=== PATIENT | male | born 1935 | race Asian ===

== ENCOUNTER 2017-07-04 15:58 | Emergency (ER) | payer BC ==
[~2017-07-04] VITALS: Ht 167.6 cm; Wt 68.0 kg
[~2017-07-04 15:58] MED LIST: ASA81 PO; ATEN-41 PO; CLOP75TA2 PO; GLIP-195 PO; LIP20 PO; LISI-600 PO
[2017-07-04 16:08] VITALS: BP_SYST 143
[2017-07-04] MEDS ORDERED: KETOROLAC TROMETHAMINE 30 MG VIAL IM ONE (17:30)
[2017-07-04] MEDS: KETOROLAC TROMETHAMINE 60 MG/2 ML VIAL IM ONE (18:01)
[2017-07-04 18:36] VITALS: BP_SYST 138
== END 2017-07-04 18:36 | disposition home or self-care (01) ==
LOC: SED 15:58
DX: S39.012A Strain of muscle, fascia and tendon of lower back, initial encounter (principal); I10 Essential (primary) hypertension; E11.9 Type 2 diabetes mellitus without complications; E78.5 Hyperlipidemia, unspecified; Z90.89 Acquired absence of other organs; Z85.46 Personal history of malignant neoplasm of prostate; Z79.899 Other long term (current) drug therapy; X58.XXXA Exposure to other specified factors, initial encounter; Y93.89 Activity, other specified; Y92.89 Other specified places as the place of occurrence of the external cause; Y99.8 Other external cause status
CPT/HCPCS: 72100; 73502; 96372; 99284; J1885

== ENCOUNTER 2017-12-12 12:02 | Emergency (ER) | payer BC ==
[~2017-12-12] VITALS: Ht 167.6 cm; Wt 68.0 kg
[2017-12-12 12:02] VITALS: BP_SYST 167
[~2017-12-12 12:02] MED LIST changes: -GLIP-195 PO; +GLIP-212 PO
[2017-12-12] MEDS ORDERED: cloNIDine HCL 0.1 MG TABLET PO ONE (12:30)
[2017-12-12 12:59] LABS: ANION GAP 8 (5-15); CALCIUM 9.8 mg/dL (8.4-11.0); CHLORIDE 105 mmol/L (98-107); CREATININE 1.08 mg/dL (0.55-1.30); GLUCOSE 259 mg/dL (70-99); POTASSIUM 3.9 mmol/L (3.5-5.1); SODIUM SERUM 141 mmol/L (136-145); UREA NITROGEN, BLOOD 19 mg/dL (8-21)
[2017-12-12 13:04] LABS: ALANINE AMINOTRANSFERASE 34 U/L (12-78); ASPARTATE AMINOTRANSFERASE 20 U/L (10-37); TOTAL BILIRUBIN 0.6 mg/dL (0.0-1.0)
[2017-12-12 14:42] VITALS: BP_SYST 146
== END 2017-12-12 14:42 | disposition home or self-care (01) ==
LOC: SED 12:02
DX: I16.0 Hypertensive urgency (principal); E11.9 Type 2 diabetes mellitus without complications; I10 Essential (primary) hypertension; E78.5 Hyperlipidemia, unspecified; Z85.46 Personal history of malignant neoplasm of prostate; Z79.899 Other long term (current) drug therapy
CPT/HCPCS: 36415; 71045; 80053; 82550-TC; 83880; 84484; 85610-TC; 85730-TC; 93005; 99285

== ENCOUNTER 2018-05-02 15:58 | Emergency (ER) | payer BC ==
[~2018-05-02] VITALS: Ht 167.6 cm; Wt 68.0 kg
[~2018-05-02 15:58] MED LIST changes: -GLIP-212 PO; +GLIP5TAB26 PO
[2018-05-02 16:30] VITALS: BP_SYST 170
--- NOTE | 2018-05-02 17:55 | NUR ---
Note tammy in ED - 05/02/18 at 1801 by ROSE MARY Patient to ER bed 4 to [facility] for evaluation. Side rails up. Report given to Parvez ROJAS
--- NOTE | 2018-05-02 18:01 | NUR ---
Pt is here for c/o HTN, denied headache pain. Per pt's , pt's BP was checked around 1400, BP was 224/101. Pt's took BP twice. Pt states he felt weak, denied dizziness, chest pain, no SOB. Pt's BP is 113/66, HR 74. VSS, pt is placed on child monitor. No acute distress noted.
--- NOTE | 2018-05-02 18:01 | NUR ---
Placed in room 5. Placed on shoulder pad molder, blood pressure machine and pulse oximeter. To gown for exam. Side rails up. Report given to Fransisco POWERS.
[2018-05-02] MEDS ORDERED: DIPHENHYDRAMINE INJ 50 MG/ML VIAL IVP ONE (18:45)
--- NOTE | 2018-05-02 19:00 | NUR ---
Dr. Zamorano at bedside.
--- NOTE | 2018-05-02 19:13 | NUR ---
Report given to GIO Morrow. Pt is resting in bed, no acute distress noted.
[2018-05-02 19:23] LABS: HEMATOCRIT 44.9 % (36-54); HEMOGLOBIN 14.8 g/dL (14.0-18.0); MEAN CORPUSCULAR HEMOGLOBIN 32 pg (27-31); MEAN CORPUSCULAR HGB CONC 33 % (32-36); MEAN CORPUSCULAR VOLUME 96 fL (79.0-98.0); PLATELET COUNT (AUTO) 159 K/uL (130-430); RED BLOOD CELL COUNT(AUTO) 4.68 MIL/uL (4.2-6.2); RED CELL DISTRIBUTION WIDTH 14.6 % (9.0-15.0); WHITE BLOOD COUNT (AUTO) 8.1 K/uL (4.8-10.8)
[2018-05-02 19:24] LABS: BASOPHILS # (AUTO) 0.1 K/uL (0.0-0.2); BASOPHILS % (AUTO) 1.2 % (0.0-2.0); EOSINOPHILS # (AUTO) 0.3 K/uL (0.0-0.4); EOSINOPHILS % (AUTO) 3.7 % (0.0-4.0); LYMPHOCYTES # (AUTO) 2.5 K/uL (1.0-5.5); LYMPHOCYTES % (AUTO) 30.3 % (20.5-51.5); MONOCYTES # (AUTO) 0.7 K/uL (0.0-1.0); MONOCYTES % (AUTO) 8.3 % (1.7-9.3); NEUTROPHILS # (AUTO) 4.6 K/uL (1.8-7.7); NEUTROPHILS % (AUTO) 56.5 % (40.0-70.0)
[2018-05-02 19:26] LABS: ANION GAP 13 (5-15); CALCIUM 9.3 mg/dL (8.4-11.0); CHLORIDE 104 mmol/L (98-107); CREATININE 0.91 mg/dL (0.55-1.30); GLUCOSE 169 mg/dL (70-99); SODIUM SERUM 139 mmol/L (136-145); UREA NITROGEN, BLOOD 19 mg/dL (8-21)
[2018-05-02 19:31] LABS: ALANINE AMINOTRANSFERASE 40 U/L (12-78); ALBUMIN 4.2 g/dL (3.4-4.8); ASPARTATE AMINOTRANSFERASE 34 U/L (10-37); TOTAL BILIRUBIN 0.5 mg/dL (0.0-1.0)
[2018-05-02 19:35] LABS: PROTHROMBIN TIME 10.6 SECS (9.5-12.5)
[2018-05-02 19:50] VITALS: BP_SYST 165
--- NOTE | 2018-05-02 19:50 | NUR ---
Patient given written and verbal discharge instructions and verbalizes understanding. ER MD discussed with patient the results and treatment provided. Patient in stable condition. ID arm band removed. No Rx given. Patient educated on pain management and to follow up with PMD. Pain Scale 0/10. Opportunity for questions provided and answered. Medication side effect fact sheet provided.
== END 2018-05-02 19:50 | disposition home or self-care (01) ==
LOC: SED 15:58
DX: I10 Essential (primary) hypertension (principal); E78.5 Hyperlipidemia, unspecified; E11.9 Type 2 diabetes mellitus without complications; Z90.89 Acquired absence of other organs; Z85.46 Personal history of malignant neoplasm of prostate; Z79.84 Long term (current) use of oral hypoglycemic drugs; Z79.82 Long term (current) use of aspirin; Z79.899 Other long term (current) drug therapy
CPT/HCPCS: 36415; 71045; 80053; 83880; 84484; 85025; 85610-TC; 93005; 99284

== ENCOUNTER 2019-04-30 10:45 | Emergency (ER) | payer BC ==
[~2019-04-30] VITALS: Ht 165.1 cm; Wt 68.0 kg
--- NOTE | 2019-04-30 10:48 | NUR ---
Patient called. Family states he is in the restroom.
--- NOTE | 2019-04-30 10:55 | NUR ---
Patient to ER bed 1 to gown for evaluation. Side rails up. Report given to GIO Harris.
--- NOTE | 2019-04-30 11:06 | NUR ---
ER Dr. Gar at bedside examining patient.
[2019-04-30] MEDS ORDERED: cefTRIAXone 1 GM in LIDOCAINE 1%, 20 ML MDV 2.1 ML IM ONE (11:15)
--- NOTE | 2019-04-30 11:20 | NUR ---
Patient given written and verbal discharge instructions and verbalizes understanding. ER MD discussed with patient the results and treatment provided. Patient in stable condition. ID arm band removed. Rx of Kelfex given. Patient educated on pain management and to follow up with PMD. Pain Scale 0/10. Opportunity for questions provided and answered. Medication side effect fact sheet provided.
== END 2019-04-30 11:20 | disposition home or self-care (01) ==
LOC: SED 10:45
DX: L03.116 Cellulitis of left lower limb (principal); E11.9 Type 2 diabetes mellitus without complications; I10 Essential (primary) hypertension; E78.5 Hyperlipidemia, unspecified; Z79.899 Other long term (current) drug therapy; Z79.82 Long term (current) use of aspirin
CPT/HCPCS: 96372; 99283; J0696; J2001

== ENCOUNTER 2021-04-06 08:42 | Inpatient (IN) | payer BC, SELFPAY ==
[~2021-04-06] VITALS: Ht 167.6 cm; Wt 66.7 kg
[~2021-04-06 08:42] MED LIST changes: -LISI-600 PO; +LISI20TA30 PO
[2021-04-06 08:50] VITALS: BP_SYST 114
[2021-04-06] MEDS ORDERED: NACL 0.9% 1,000 ML IV ONE (09:00)
[2021-04-06 10:03] LABS: BASOPHILS % (AUTO) 0.2 % (0.0-2.0); HEMATOCRIT 44.6 % (36-54); HEMOGLOBIN 14.6 g/dL (14.0-18.0); LYMPHOCYTES # (AUTO) 0.4 K/uL (1.0-5.5); LYMPHOCYTES % (AUTO) 4.7 % (20.5-51.5); MEAN CORPUSCULAR HEMOGLOBIN 30 pg (27-31); MEAN CORPUSCULAR HGB CONC 33 % (32-36); MEAN CORPUSCULAR VOLUME 93 fL (79.0-98.0); MONOCYTES # (AUTO) 0.7 K/uL (0.0-1.0); MONOCYTES % (AUTO) 7.1 % (1.7-9.3); NEUTROPHILS # (AUTO) 8.2 K/uL (1.8-7.7); PLATELET COUNT (AUTO) 164 K/uL (130-430); RED BLOOD CELL COUNT(AUTO) 4.82 MIL/uL (4.2-6.2); RED CELL DISTRIBUTION WIDTH 14.3 % (9.0-15.0); WHITE BLOOD COUNT (AUTO) 9.3 K/uL (4.8-10.8)
[2021-04-06 10:31] LABS: ANION GAP 17 (5-15); CALCIUM 8.8 mg/dL (8.4-11.0); CHLORIDE 108 mmol/L (98-107); CREATININE 1.63 mg/dL (0.55-1.30); GLUCOSE 257 mg/dL (70-99); POTASSIUM 3.9 mmol/L (3.5-5.1); SODIUM SERUM 147 mmol/L (136-145); UREA NITROGEN, BLOOD 41 mg/dL (8-21)
[2021-04-06 10:32] LABS: PROTHROMBIN TIME 10.6 SECS (9.5-12.5)
[2021-04-06 10:37] LABS: ALANINE AMINOTRANSFERASE 97 U/L (12-78); ALBUMIN 2.5 g/dL (3.4-4.8); ASPARTATE AMINOTRANSFERASE 157 U/L (10-37); LIPASE 124 U/L (73-393)
[2021-04-06 10:39] LABS: PHOSPHORUS 4.6 mg/dL (2.7-4.5)
[2021-04-06] MEDS ORDERED: dilTIAZem HCL IVP 5 MG/ML VIAL IVP ONE (11:15)
[2021-04-06] MEDS ORDERED: AZITHROMYCIN 500 MG in NS 250 ML IV ONE (11:15)
[2021-04-06] MEDS ORDERED: AZITHROMYCIN 500 MG/VIAL (ZITHROMAX) IV ONE (11:30)
[2021-04-06] MEDS ORDERED: cefTRIAXone 2 GM VIAL ONE (11:31)
[2021-04-06] MEDS ORDERED: ALBUTEROL SULFATE 0.083% 2.5 MG/3 ML VIAL.NEB INH PRN (12:30)
[2021-04-06] MEDS ORDERED: IPRATROPIUM BROM 0.5 MG/2.5 ML VIAL.NEB (ATROVENT) INH PRN (12:30)
[2021-04-06] MEDS ORDERED: DEXTROSE 50% JECT 50 ML DISP.SYRIN IVP PRN (12:45)
[2021-04-06] MEDS ORDERED: LORazepam 2 MG/ML VIAL IVP ONE (12:45)
[2021-04-06] MEDS: IPRATROPIUM BROM 0.5 MG/2.5 ML VIAL.NEB (ATROVENT) INH SCH ×2 (13:00→20:10)
[2021-04-06] MEDS: ALBUTEROL SULFATE 0.083% 2.5 MG/3 ML VIAL.NEB INH SCH ×2 (13:00→20:10)
[2021-04-06] MEDS ORDERED: DEXAMETHASONE SOD PHOSPHATE 10 MG/ML VIAL IVP ONE (13:45)
[2021-04-06 14:43] VITALS: BP_SYST 142
[2021-04-06 14:45] VITALS: BP_SYST 147
[2021-04-06] MEDS ORDERED: ALBUTEROL SULFATE 0.083% 2.5 MG/3 ML VIAL.NEB INH ONE (16:05)
[2021-04-06] MEDS ORDERED: IPRATROPIUM BROM 0.5 MG/2.5 ML VIAL.NEB (ATROVENT) INH ONE (16:05)
[2021-04-06] MEDS ORDERED: DEXAMETHASONE SOD PHOSPHATE 10 MG/ML VIAL ONE (16:05)
[2021-04-06] MEDS: D5NS 1,000 ML IV SCH ×2 (16:11→22:40)
[2021-04-06] MEDS: INSULIN REGULAR, HUMAN 100 UNITS/ML, 10 ML VIAL (humuLIN R) SUBCUT PRN (17:07)
[2021-04-06 18:02] VITALS: BP_SYST 122
[2021-04-06 20:40] VITALS: BP_SYST 135
[2021-04-07] MEDS ORDERED: IPRATROPIUM BROM 0.5 MG/2.5 ML VIAL.NEB (ATROVENT) INH ONE (00:05)
[2021-04-07] MEDS ORDERED: ALBUTEROL SULFATE 0.083% 2.5 MG/3 ML VIAL.NEB INH ONE (00:05)
[2021-04-07] MEDS: ALBUTEROL SULFATE 0.083% 2.5 MG/3 ML VIAL.NEB INH SCH ×2 (00:36→07:00)
[2021-04-07] MEDS: IPRATROPIUM BROM 0.5 MG/2.5 ML VIAL.NEB (ATROVENT) INH SCH ×2 (00:37→07:50)
[2021-04-07] MEDS: INSULIN REGULAR, HUMAN 100 UNITS/ML, 10 ML VIAL (humuLIN R) SUBCUT PRN ×4 (02:16→18:15)
[2021-04-07 04:00] VITALS: BP_SYST 144
[2021-04-07 08:00] VITALS: BP_SYST 145
[2021-04-07] MEDS: ASPIRIN 81 MG TAB.CHEW PO SCH (08:15)
[2021-04-07] MEDS: ATORVASTATIN 20 MG TABLET PO SCH (08:16)
[2021-04-07] MEDS: CLOPIDOGREL BISULFATE 75 MG TABLET PO SCH (08:16)
[2021-04-07] MEDS: DEXAMETHASONE SOD PHOSPHATE 10 MG/ML VIAL IVP SCH (08:34)
[2021-04-07] MEDS: cefTRIAXone 1 GM in D5W 50 ML IV SCH (08:36)
[2021-04-07] MEDS ORDERED: DEXAMETHASONE SOD PHOSPHATE 10 MG/ML VIAL IVP SCH (09:00)
[2021-04-07] MEDS ORDERED: cefTRIAXone 1 GM in D5W 50 ML IV SCH (09:00)
[2021-04-07] MEDS ORDERED: CLOPIDOGREL BISULFATE 75 MG TABLET PO SCH (09:00)
[2021-04-07] MEDS ORDERED: ATORVASTATIN 20 MG TABLET PO SCH (09:00)
[2021-04-07] MEDS ORDERED: ASPIRIN 81 MG TAB.CHEW PO SCH (09:00)
[2021-04-07] MEDS ORDERED: AZITHROMYCIN 500 MG in NS 250 ML IV SCH (10:00)
[2021-04-07 10:36] LABS: BASOPHILS # (AUTO) 0.1 K/uL (0.0-0.2); BASOPHILS % (AUTO) 0.7 % (0.0-2.0); LYMPHOCYTES # (AUTO) 0.3 K/uL (1.0-5.5); LYMPHOCYTES % (AUTO) 2.7 % (20.5-51.5); MEAN CORPUSCULAR HEMOGLOBIN 30 pg (27-31); MEAN CORPUSCULAR HGB CONC 33 % (32-36); MEAN CORPUSCULAR VOLUME 92 fL (79.0-98.0); MONOCYTES # (AUTO) 0.3 K/uL (0.0-1.0); MONOCYTES % (AUTO) 2.7 % (1.7-9.3); NEUTROPHILS % (AUTO) 93.9 % (40.0-70.0); PLATELET COUNT (AUTO) 172 K/uL (130-430); RED BLOOD CELL COUNT(AUTO) 5.01 MIL/uL (4.2-6.2); RED CELL DISTRIBUTION WIDTH 14.6 % (9.0-15.0); WHITE BLOOD COUNT (AUTO) 12.8 K/uL (4.8-10.8)
[2021-04-07 10:56] LABS: ANION GAP 13 (5-15); CALCIUM 8.7 mg/dL (8.4-11.0); CHLORIDE 116 mmol/L (98-107); CREATININE 1.32 mg/dL (0.55-1.30); GLUCOSE 331 mg/dL (70-99); POTASSIUM 3.8 mmol/L (3.5-5.1); SODIUM SERUM 154 mmol/L (136-145); UREA NITROGEN, BLOOD 39 mg/dL (8-21)
[2021-04-07 11:04] LABS: ALANINE AMINOTRANSFERASE 96 U/L (12-78); ALBUMIN 2.4 g/dL (3.4-4.8); ASPARTATE AMINOTRANSFERASE 156 U/L (10-37); TOTAL BILIRUBIN 0.8 mg/dL (0.0-1.0)
[2021-04-07] MEDS: AZITHROMYCIN 500 MG in NS 250 ML IV SCH (11:08)
[2021-04-07] MEDS: D5NS 1,000 ML IV SCH ×2 (11:09→22:33)
[2021-04-07 12:00] VITALS: BP_SYST 145
[2021-04-07] MEDS ORDERED: LIDOCAINE VISCOUS 2%, 15 ML UDC MM PRN (13:00)
[2021-04-07] MEDS ORDERED: NALOXONE HCL 0.4 MG/ML AMP (NARCAN) IVP PRN (13:00)
[2021-04-07 17:02] VITALS: BP_SYST 143
[2021-04-07 20:00] VITALS: BP_SYST 158
[2021-04-08 01:00] VITALS: BP_SYST 147
[2021-04-08 04:00] VITALS: BP_SYST 145
[2021-04-08] MEDS: IPRATROPIUM BROM 0.5 MG/2.5 ML VIAL.NEB (ATROVENT) INH SCH ×2 (07:00→19:00)
[2021-04-08] MEDS: ALBUTEROL SULFATE 0.083% 2.5 MG/3 ML VIAL.NEB INH SCH ×2 (07:00→19:00)
[2021-04-08] MEDS: CLOPIDOGREL BISULFATE 75 MG TABLET PO SCH (09:00)
[2021-04-08] MEDS: ASPIRIN 81 MG TAB.CHEW PO SCH (09:00)
[2021-04-08] MEDS: ATORVASTATIN 20 MG TABLET PO SCH (09:00)
[2021-04-08 09:28] VITALS: BP_SYST 133
[2021-04-08 09:53] LABS: BASOPHILS % (AUTO) 0.1 % (0.0-2.0); HEMATOCRIT 43.4 % (36-54); HEMOGLOBIN 13.9 g/dL (14.0-18.0); LYMPHOCYTES # (AUTO) 0.3 K/uL (1.0-5.5); LYMPHOCYTES % (AUTO) 2.6 % (20.5-51.5); MEAN CORPUSCULAR HEMOGLOBIN 30 pg (27-31); MEAN CORPUSCULAR HGB CONC 32 % (32-36); MEAN CORPUSCULAR VOLUME 93 fL (79.0-98.0); MONOCYTES # (AUTO) 0.4 K/uL (0.0-1.0); MONOCYTES % (AUTO) 2.7 % (1.7-9.3); NEUTROPHILS # (AUTO) 12.6 K/uL (1.8-7.7); NEUTROPHILS % (AUTO) 94.6 % (40.0-70.0); PLATELET COUNT (AUTO) 191 K/uL (130-430); RED BLOOD CELL COUNT(AUTO) 4.68 MIL/uL (4.2-6.2); RED CELL DISTRIBUTION WIDTH 14.4 % (9.0-15.0); WHITE BLOOD COUNT (AUTO) 13.4 K/uL (4.8-10.8)
[2021-04-08] MEDS: MORPHINE 2 MG/ML INJ. SYRINGE IVP PRN (09:53)
[2021-04-08] MEDS: cefTRIAXone 1 GM in D5W 50 ML IV SCH (09:54)
[2021-04-08] MEDS: AZITHROMYCIN 500 MG in NS 250 ML IV SCH (09:56)
[2021-04-08] MEDS: DEXAMETHASONE SOD PHOSPHATE 10 MG/ML VIAL IVP SCH (09:57)
[2021-04-08 10:50] LABS: ALANINE AMINOTRANSFERASE 124 U/L (12-78); ALBUMIN 2.2 g/dL (3.4-4.8); ANION GAP 11 (5-15); ASPARTATE AMINOTRANSFERASE 185 U/L (10-37); CALCIUM 8.5 mg/dL (8.4-11.0); CREATININE 1.25 mg/dL (0.55-1.30); POTASSIUM 3.8 mmol/L (3.5-5.1); TOTAL BILIRUBIN 0.9 mg/dL (0.0-1.0); UREA NITROGEN, BLOOD 35 mg/dL (8-21)
[2021-04-08 10:57] LABS: CHLORIDE 126 mmol/L (98-107); GLUCOSE 407 mg/dL (70-99); SODIUM SERUM 163 mmol/L (136-145)
[2021-04-08 11:03] LABS: C-REACTIVE PROTEIN QUANT 20.3 mg/dL (0-0.5)
[2021-04-08] MEDS ORDERED: IOHEXOL 350 mgI/mL, 150 ML INFUS..BTL IV ONE (11:11)
[2021-04-08 11:30] VITALS: BP_SYST 148
[2021-04-08] MEDS: D5W 1,000 ML IV SCH ×2 (11:57→21:24)
[2021-04-08] MEDS: INSULIN REGULAR, HUMAN 100 UNITS/ML, 10 ML VIAL (humuLIN R) SUBCUT PRN ×3 (12:19→23:55)
[2021-04-08] MEDS: AMIODARONE HCL 450 MG in D5W 241 ML IV SCH ×3 (13:03→22:38)
[2021-04-08 17:07] VITALS: BP_SYST 153
[2021-04-08 20:00] VITALS: BP_SYST 149
[2021-04-08] MEDS ORDERED: AMIODARONE HCL 450 MG/9 ML VIAL IV ONE (21:46)
[2021-04-09] VITALS: BP_SYST 164
[2021-04-09 00:15] VITALS: BP_SYST 153
[2021-04-09] MEDS: ALBUTEROL SULFATE 0.083% 2.5 MG/3 ML VIAL.NEB INH SCH (00:21)
[2021-04-09] MEDS: IPRATROPIUM BROM 0.5 MG/2.5 ML VIAL.NEB (ATROVENT) INH SCH (00:21)
[2021-04-09] MEDS: INSULIN REGULAR, HUMAN 100 UNITS/ML, 10 ML VIAL (humuLIN R) SUBCUT PRN ×2 (05:37→13:16)
[2021-04-09] MEDS: D5W 1,000 ML IV SCH (05:41)
[2021-04-09 08:00] VITALS: BP_SYST 177
[2021-04-09 08:23] LABS: BASOPHILS # (AUTO) 0.1 K/uL (0.0-0.2); BASOPHILS % (AUTO) 0.7 % (0.0-2.0); EOSINOPHILS # (AUTO) 0.2 K/uL (0.0-0.4); EOSINOPHILS % (AUTO) 1.3 % (0.0-4.0); HEMATOCRIT 43.8 % (36-54); HEMOGLOBIN 14.2 g/dL (14.0-18.0); LYMPHOCYTES # (AUTO) 0.4 K/uL (1.0-5.5); LYMPHOCYTES % (AUTO) 3.2 % (20.5-51.5); MEAN CORPUSCULAR HEMOGLOBIN 30 pg (27-31); MEAN CORPUSCULAR HGB CONC 32 % (32-36); MEAN CORPUSCULAR VOLUME 94 fL (79.0-98.0); MONOCYTES # (AUTO) 0.4 K/uL (0.0-1.0); MONOCYTES % (AUTO) 3.2 % (1.7-9.3); NEUTROPHILS # (AUTO) 11.6 K/uL (1.8-7.7); NEUTROPHILS % (AUTO) 91.6 % (40.0-70.0); PLATELET COUNT (AUTO) 90 K/uL (130-430); RED BLOOD CELL COUNT(AUTO) 4.68 MIL/uL (4.2-6.2); RED CELL DISTRIBUTION WIDTH 14.6 % (9.0-15.0); WHITE BLOOD COUNT (AUTO) 12.7 K/uL (4.8-10.8)
[2021-04-09] MEDS: ASPIRIN 81 MG TAB.CHEW PO SCH (09:00)
[2021-04-09] MEDS: CLOPIDOGREL BISULFATE 75 MG TABLET PO SCH (09:00)
[2021-04-09] MEDS: ATORVASTATIN 20 MG TABLET PO SCH (09:00)
[2021-04-09] MEDS: cefTRIAXone 1 GM in D5W 50 ML IV SCH (09:00)
[2021-04-09] MEDS: DEXAMETHASONE SOD PHOSPHATE 10 MG/ML VIAL IVP SCH (10:39)
[2021-04-09] MEDS: AZITHROMYCIN 500 MG in NS 250 ML IV SCH (10:41)
[2021-04-09] MEDS: MORPHINE 2 MG/ML INJ. SYRINGE IVP PRN (10:47)
[2021-04-09 11:16] VITALS: BP_SYST 160
[2021-04-09 12:49] LABS: ALANINE AMINOTRANSFERASE 139 U/L (12-78); ALBUMIN 2.2 g/dL (3.4-4.8); ANION GAP 11 (5-15); ASPARTATE AMINOTRANSFERASE 195 U/L (10-37); CREATININE 1.18 mg/dL (0.55-1.30); GLUCOSE 300 mg/dL (70-99); POTASSIUM 3.8 mmol/L (3.5-5.1); SODIUM SERUM 158 mmol/L (136-145); TOTAL BILIRUBIN 1.1 mg/dL (0.0-1.0); UREA NITROGEN, BLOOD 29 mg/dL (8-21)
[2021-04-09 12:54] LABS: CHLORIDE 120 mmol/L (98-107)
[2021-04-09] MEDS ORDERED: MORPHINE SULFATE IN 0.9 % NACL 100 ML IV PRN (14:15)
[2021-04-09] MEDS ORDERED: MORPHINE SULFATE IN 0.9 % NACL 100 ML IV ONE (14:38)
== END 2021-04-09 15:55 | DRG 871 ==
LOC: SED 08:42 → STU 14:08
PROVIDERS: ADMIT Internal Medicine Hospice and Palliative Medicine; ATTEND Internal Medicine Hospice and Palliative Medicine
PROC: 5A09457 Assistance with Respiratory Ventilation, 24-96 Consecutive Hours, Continuous Positive Airway Pressure (ICD-10-PCS; principal; 2021-04-06)
DX: A41.89 Other specified sepsis (principal); U07.1 COVID-19; J12.82 Pneumonia due to coronavirus disease 2019; J96.01 Acute respiratory failure with hypoxia; I21.4 Non-ST elevation (NSTEMI) myocardial infarction; G93.41 Metabolic encephalopathy; N17.9 Acute kidney failure, unspecified; D68.59 Other primary thrombophilia; Z66 Do not resuscitate; J11.1 Influenza due to unidentified influenza virus with other respiratory manifestations; E11.22 Type 2 diabetes mellitus with diabetic chronic kidney disease; I12.9 Hypertensive chronic kidney disease with stage 1 through stage 4 chronic kidney disease, or unspecified chronic kidney disease; E78.5 Hyperlipidemia, unspecified; R74.01 Elevation of levels of liver transaminase levels; I48.91 Unspecified atrial fibrillation; E78.00 Pure hypercholesterolemia, unspecified; R53.81 Other malaise; R65.20 Severe sepsis without septic shock; N18.9 Chronic kidney disease, unspecified; Z87.891 Personal history of nicotine dependence; I69.322 Dysarthria following cerebral infarction; Z79.82 Long term (current) use of aspirin; Z79.899 Other long term (current) drug therapy; Z85.46 Personal history of malignant neoplasm of prostate
CPT/HCPCS: 36415; 36600; 71045; 80053; 82803-TC; 82962; 83605; 83690; 83735; 83880; 84100; 84484; 85025; 85379; 85610-TC; 85730-TC; 86140; 87040; 93005; 93970; 94640; 94660; 96365; 96368; 96375; 99291; G0378; J0456; J0696; J1100; J1815; J2270; J3490; J7050; J7060; J7613; Q9967